=== PATIENT | female | born 1970 | race Caucasian/White ===

== ENCOUNTER 2017-07-18 19:07 | Emergency (ER) | payer BC ==
[~2017-07-18] VITALS: Ht 167.6 cm; Wt 104.3 kg
[~2017-07-18 19:07] MED LIST: INVOKANA PO; LEVEMIR100 UNIT/1 INJ; LISINOPRIL-HCT1 EACH PO; LISINOPRIL10 MG PO; METFORMIN HCL500 M2 PO; METFORMIN HCL500 MG PO; TYLENOL WITH C1 EACH PO; levimer
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
[2017-07-18 23:08] VITALS: BP 109/55
== END 2017-07-18 23:12 | disposition home or self-care (01) ==
LOC: ER 19:07
DX: M54.2 Cervicalgia (principal); S16.1XXA Strain of muscle, fascia and tendon at neck level, initial encounter; S39.012A Strain of muscle, fascia and tendon of lower back, initial encounter; V43.52XA Car driver injured in collision with other type car in traffic accident, initial encounter; Y92.488 Other paved roadways as the place of occurrence of the external cause; E11.9 Type 2 diabetes mellitus without complications; I10 Essential (primary) hypertension; M32.9 Systemic lupus erythematosus, unspecified; M79.7 Fibromyalgia; Z86.718 Personal history of other venous thrombosis and embolism
CPT/HCPCS: 72050; 72110; 99283

== ENCOUNTER → 2017-10-03 | Outpatient (CLI) | payer BC | LOC: RESP 06:41 | PROVIDERS: ATTEND Internal Medicine | DX: J45.40 Moderate persistent asthma, uncomplicated (principal) ==

== ENCOUNTER 2018-01-04 06:48 | Emergency (ER) | payer BC ==
[~2018-01-04] VITALS: Ht 167.6 cm; Wt 104.3 kg
[2018-01-04] MEDS ORDERED: FAMOTIDINE 20 MG/2 ML VIAL IV STA (07:13)
[2018-01-04] MEDS ORDERED: ONDANSETRON HCL INJ 2 MG/ML VIAL IV STA (07:13)
[2018-01-04] MEDS ORDERED: LOPERAMIDE HCL 2 MG CAP PO ONE (07:15)
[2018-01-04] MEDS ORDERED: SODIUM CHLORIDE 0.9% 1000ML 1,000 ML IV ONE ×2 (07:15→08:45)
[2018-01-04] MEDS ORDERED: DICYCLOMINE HCL 20 MG/2 ML VIAL IM ONE (07:15)
[2018-01-04 07:24] LABS: BASOPHILS # (AUTO) 0.1 (0.0-0.1); BASOPHILS % 0.5 % (0.0-1.0); EOSINOPHILS # (AUTO) 0.1 (0.0-0.4); EOSINOPHILS % 1.1 % (0.0-6.0); HEMATOCRIT 40.1 % (34.2-44.1); HEMOGLOBIN 13.4 g/dL (12.0-16.0); LYMPHOCYTES # (AUTO) 2.2 (1.0-3.2); LYMPHOCYTES % 21.4 % (18.0-39.1); MEAN CORPUSCULAR HEMOGLOBIN 29.5 pg (28-32); MEAN CORPUSCULAR HGB CONC 33.4 g/dL (31-35); MEAN CORPUSCULAR VOLUME 88.3 fL (81-99); MONOCYTES # (AUTO) 0.7 (0.2-0.8); MONOCYTES % 7.1 % (4.4-11.3); NEUTROPHILS % 69.6 % (38.7-80.0); PLATELET COUNT 210 x10e3/uL (140-360); RED BLOOD COUNT 4.54 x10e6/uL (3.6-5.1); RED CELL DISTRIBUTION WIDTH 13.5 % (11.7-14.4)
[2018-01-04 07:44] LABS: ALANINE AMINOTRANSFERASE 25 IU/L (0-55); ALBUMIN 3.3 g/dL (3.5-5.0); ALBUMIN/GLOBULIN RATIO 0.8 (0.8-2.0); ALKALINE PHOSPHATASE 72 IU/L (40-150); ANION GAP 17.1 mmol/L (8-16); BLOOD UREA NITROGEN 16 mg/dL (7-26); BUN/CREATININE RATIO 19 (6-25); CALCIUM 9.4 mg/dL (8.4-10.2); CARBON DIOXIDE 24 mmol/L (22-29); CHLORIDE 99 mmol/L (98-107); CREATININE, SERUM 0.84 mg/dL (0.57-1.11); EST GLOMERULAR FILTRATION RATE > 60 ML/MIN (60-); GLUCOSE 231 mg/dL (74-118); LIPASE 34 U/L (8-78); POTASSIUM 4.1 mmol/L (3.5-5.1); SODIUM 136 mmol/L (136-145)
--- NOTE | 2018-01-04 09:32 | Diagnostic Imaging Report ---
PROCEDURE:ABDOMEN ACUTE SERIES W/PA CXR COMPARISON:Lumbar spine radiographs 07/18/2017, abdominal radiograph 12/31/2015. INDICATIONS:EPIGASTRIC PAIN, EGG LIKE SMELL FROM BURPS, VOMITTING FINDINGS: CHEST: The lungs are hypoinflated. No focal airspace consolidation, pleural effusion, or pneumothorax. Cardiomediastinal contour and pulmonary vasculature are within normal limits when accounting for degree of lung inflation. Right lower cervical surgical clips. No pneumoperitoneum. No acute osseous abnormality. BOWEL PATTERN: No dilated, air-filled loops of bowel. SOFT TISSUES: Unremarkable. No mass effect or organomegaly. Byers IVC filter lies at the level of L1-L2, unchanged. Right upper quadrant surgical clips likely related to cholecystectomy. Dropped surgical clip in the right hemipelvis. BONES: Intact. CONCLUSION: 1. low lung volumes without acute cardiopulmonary abnormality. 2. nonobstructive bowel gas pattern. Dictated by: Venkat Huffman M.D. on 01/04/2018 at 8:14 Electronically approved by: Venkat Huffman M.D. on 01/04/2018 at 8:14
[2018-01-04 11:16] VITALS: BP 105/71
== END 2018-01-04 11:41 | disposition home or self-care (01) ==
LOC: ER 06:48
DX: R11.2 Nausea with vomiting, unspecified (principal); R19.7 Diarrhea, unspecified; K52.9 Noninfective gastroenteritis and colitis, unspecified; B34.9 Viral infection, unspecified
CPT/HCPCS: 36415; 74022; 80053; 82948; 83690; 84484; 85025; 93005; 99284; J0500; J2405; J7030

== ENCOUNTER 2018-04-11 17:06 | Emergency (ER) | payer BC ==
[~2018-04-11] VITALS: Ht 167.6 cm; Wt 104.3 kg
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
[2018-04-11 18:43] VITALS: BP 120/66
== END 2018-04-11 18:48 | disposition home or self-care (01) ==
LOC: FSED 17:06
DX: S93.611A Sprain of tarsal ligament of right foot, initial encounter (principal); X50.1XXA Overexertion from prolonged static or awkward postures, initial encounter; Y93.01 Activity, walking, marching and hiking; E11.9 Type 2 diabetes mellitus without complications; M32.9 Systemic lupus erythematosus, unspecified; M79.7 Fibromyalgia
CPT/HCPCS: 99283

== ENCOUNTER 2019-09-20 09:59 | Observation (INO) | payer BC ==
[~2019-09-20] VITALS: Ht 170.2 cm; Wt 106.1 kg
[~2019-09-20 09:59] MED LIST changes: +ALLOPURINOL300 MG PO; +DOXYCYCLINE HY100 MG PO; +GLIPIZIDE-METF1 EAC2; +PLAQUENIL200 MG PO; +TESSALON PERLE100 MG PO; +VENTOLIN HFA18 GM PO
[2019-09-20] MEDS ORDERED: ASPIRIN 81 MG CHEW TAB PO ONE ×2 (10:15→12:15)
--- NOTE | 2019-09-20 11:10 | Diagnostic Imaging Report ---
EXAM: CXR 2 VIEW - [facility] DATE: 09/20/2019 12:00 AM INDICATION: Chest pain COMPARISON: 06/10/2019 FINDINGS: The trachea is midline. The lungs are symmetrically expanded without evidence for large focal consolidation, pneumothorax, or significant pleural effusion. The cardiomediastinal silhouette is stable in appearance. The pulmonary vasculature is not engorged. No acute osseous abnormality is identified. The surrounding soft tissues are unremarkable. IMPRESSION: No acute cardiopulmonary process identified. Signed by: Dr. Davon Crain MD on 09/20/2019 11:07 AM
[2019-09-20] MEDS ORDERED: ASPIRIN 81 MG CHEW TAB ONE (11:34)
[2019-09-20] MEDS ORDERED: DEXTROSE 50% SYRINGE 50 ML IV PRN (12:15)
[2019-09-20] MEDS ORDERED: ONDANSETRON HCL INJ 2MG/ML 2ML 2 MG/ML VIAL IV PRN (12:15)
[2019-09-20] MEDS ORDERED: NITROGLYCERIN 0.4 MG SUBL SL PRN (12:15)
[2019-09-20] MEDS ORDERED: MORPHINE SULFATE 2 MG/ML SYR 1ML IV PRN (12:15)
[2019-09-20] MEDS ORDERED: SODIUM CHLORIDE FLUSH 10 ML SYR INJ PRN (12:15)
[2019-09-20 13:02] LABS: CREATINE KINASE 37 IU/L (29-168)
--- NOTE | 2019-09-20 13:18 | NUR ---
[facility] called to transport pt to Room 111.
[2019-09-20] MEDS ORDERED: FAMOTIDINE 20 MG TAB PO SCH (13:30)
--- NOTE | 2019-09-20 14:01 | NUR ---
Report to EVAN Sheets
[2019-09-20 14:27] VITALS: BP 132/81
[2019-09-20 14:28] VITALS: BP 132/81
--- NOTE | 2019-09-20 14:30 | NUR ---
RECEIVED PATIENT FROM ED VIA STRETCHER FROM AMBULANCE, PT GOT OFF OF STRETCHER AND WALKED TO BED, PT CHANGED INTO YELLOW NON SLIP SOCKS, ADMISSION ASSESSMENT PERFORMED, CALL LIGHT WITHIN REACH, INSTRUCTIONS GIVEN
[2019-09-20] MEDS ORDERED: TRESIBA100 UNIT/1 SQ (14:47)
[2019-09-20] MEDS ORDERED: ZETIA10 MG PO (14:49)
[2019-09-20 16:00] VITALS: BP 120/74
[2019-09-20] MEDS ORDERED: INSULIN REGULAR, HUMAN 100 UNIT/1 ML 3ML VIAL SQ SCH (16:30)
[2019-09-20] MEDS: INSULIN LISPRO 100 UNIT/1 ML 3ML VIAL SQ SCH ×2 (16:46→20:41)
--- NOTE | 2019-09-20 17:18 | History and Physical ---
HISTORY OF PRESENT ILLNESS: This is a 49-year-old female with a history of uncontrolled diabetes mellitus and history of hyperlipidemia, presented to ED with chest pain which is pressure-like chest pain, woke her up and radiation to the left arm. The patient's severity is described as about 4 to 5/10 and no other associated factors. The patient has no shortness of breath. No diaphoresis. No nausea. No vomiting. Positive for some abdominal pain in the epigastric area. PAST MEDICAL HISTORY: History of hypertension, history of uncontrolled diabetes mellitus, history of lupus erythematosus, history of hypertension, history of hyperlipidemia and also history of gout. MEDICATIONS: She takes at home albuterol q.6 hours as needed, allopurinol 300 mg daily, benzonatate 100 mg daily, Zetia 10 mg daily, glipizide/metformin 5/500 twice a day, hydroxychloroquine 200 mg daily, insulin 20 units subcu daily, lisinopril/hydrochlorothiazide 20/12.5 mg daily. PAST SURGICAL HISTORY: History of cholecystectomy, history of hysterectomy, history of tubal ligation in the past. SOCIAL HISTORY: No EtOH, no IV drug abuse, no history of smoking either. REVIEW OF SYSTEMS: Positive for chest pain. No shortness of breath, shortness of breath. No nausea, no vomiting. No diarrhea. No constipation. No rectal bleeding. No hematochezia. No hematemesis. The patient also has a history of DVT with an IVC filter placement for DVT. PHYSICAL EXAMINATION: VITAL SIGNS: Temperature is 97.1, T-max 99.4, pulse 102, blood pressure is 132/81, pulse oximeter of 97%. HEENT: Normocephalic, atraumatic. Pupils are reactive. CVS: S1 and S2 normal. Tachycardic. ABDOMEN: Tender in the epigastrium. EXTREMITIES: No clubbing, no cyanosis, no edema. BACK: With tenderness. SKIN: Normal. LABORATORY VALUES: Initial CK was 37, troponin less than 0.01. Lipase is 34. Rest of the labs were done and UA not done. CBC and CMP are missing in the chart. IMAGING STUDIES: Chest x-ray shows no acute cardiopulmonary process identified. ASSESSMENT: 1. Chest pain. 2. Uncontrolled diabetes. 3. Hyperlipidemia. 4. Obesity. 5. Lupus. 6. Reflux esophagitis. PLAN: To continue trending the troponin. Echocardiogram will be ordered. Stress test will be ordered secondary to the patient's multiple risk factors. The patient had a cardiac cath in 2016 and it was normal. We will plan continue monitoring the patient's CBC, CMP and kidney function will be ordered, further recommendation and clinical course. We will continue to monitor the patient. A consult with Dr. Gallegos, Cardiology has also been done. MD DAYNE Robbins/MIKEYL /[id number]
[2019-09-20] MEDS ORDERED: PNEUMOCOCCAL VACCINE POLYVALENT 23 MCG/0.5 ML VIAL IM NR (17:30)
--- NOTE | 2019-09-20 18:14 | Consultation ---
DATE OF CONSULTATION: 09/20/2019 Cardiology Consultation REQUESTING PHYSICIAN: Dr. Chun. REASON FOR CONSULTATION: Chest pain. HISTORY OF PRESENT ILLNESS: This is a 49-year-old woman with history of hypertension, hyperlipidemia, diabetes mellitus, lupus, and history of right lower extremity DVT, status post IVC filter in 1998, who presents with complaints of chest pain. The patient reports she woke up this morning around 5 a.m. with chest pain, which she described as something sitting on her chest. The pain was 7/10 in severity and was associated with nausea as well as left arm discomfort. She denies any shortness of breath or diaphoresis. She did not notice any aggravation with ambulation to the bathroom. Due to her symptoms, she presented to the ER for further evaluation. Of note, she indicates she has had lower extremity edema since March as well as 2-3 pillow orthopnea since May. Her chest pain has been constant and onset. Cardiology is consulted for further evaluation. REVIEW OF SYSTEMS: Negative except as per HPI. PAST MEDICAL HISTORY: 1. Hypertension. 2. Hyperlipidemia. 3. Diabetes mellitus. 4. Lupus. 5. History of right lower extremity DVT, status post IVC filter in 1998. PAST SURGICAL HISTORY: 1. Tubal ligation. 2. . 3. Tonsillectomy. ALLERGIES: PLEASE SEE EMR. MEDICATIONS: Please see medication list. SOCIAL HISTORY: Denies tobacco or illicit drugs. She does drink alcohol on occasion. FAMILY HISTORY: Pertinent for parents and brother with heart disease, especially brother and mother with heart disease beginning in their 40s. PHYSICAL EXAMINATION: VITAL SIGNS: Temperature 97.6 degrees, pulse 94, respiratory rate 18, blood pressure 120/74, and oxygen saturation 94% on room air. GENERAL: Obese woman, well developed, well nourished, in no acute distress. HEENT: Normocephalic and atraumatic. Pupils equal. No scleral icterus. NECK: Supple. No thyromegaly or cervical lymphadenopathy. No carotid bruits. LUNGS: Clear to auscultation bilaterally. No wheezes or crackles. CARDIOVASCULAR: Normal rate. Regular rhythm. No murmur. Normal S1 and S2. ABDOMEN: Soft and nontender. EXTREMITIES: No edema. NEUROLOGIC: Nonfocal exam. DIAGNOSTIC DATA: EKG, normal sinus rhythm, possible left atrial enlargement, anterior infarct, age undetermined. IMPRESSION: 1. Chest pain. 2. Hypertension. 3. Hyperlipidemia. 4. Diabetes mellitus type 2. 5. History of right lower extremity deep vein thrombosis, status post inferior vena cava filter in 1998. 6. History of lupus. RECOMMENDATIONS: Trend cardiac markers to rule out myocardial infarction. Obtain echocardiogram. If she ruled out, plan for nuclear stress test in the morning. Check fasting lipid panel. Continue home cardiac medications. Monitor on telemetry while admitted. Thank you for this consult. We will continue to follow. Hannah Mclain MD ABS/MODL /[id number]
--- NOTE | 2019-09-20 19:07 | NUR ---
WALKING ROUNDS PERFORMED, RECEIVED PT LAYING SEMI FOWLERS IN BED, AAOX3, RR EVEN AND NON-LABORED, ON ROOM AIR. NO S/SX OF DISTRESS NOTED. LEFT PT LAYING SEMI FOWLERS IN BED, BED IN LOW LOCKED POSITION, SIDE RAILS UPX2, CALL LIGHT AND PHONE WITHIN REACH.
[2019-09-20 19:43] LABS: CREATINE KINASE MB 0.6 ng/mL (0-5.0)
[2019-09-20 20:12] VITALS: BP 124/78
[2019-09-20] MEDS: FAMOTIDINE 20 MG TAB PO SCH (20:41)
[2019-09-21 05:37] LABS: BASOPHILS # (AUTO) 0.1 (0.0-0.1); BASOPHILS % 0.9 % (0.0-1.0); EOSINOPHILS # (AUTO) 0.2 (0.0-0.4); EOSINOPHILS % 2.1 % (0.0-6.0); HEMATOCRIT 38.3 % (34.2-44.1); HEMOGLOBIN 11.7 g/dL (12.0-16.0); LYMPHOCYTES # (AUTO) 3.2 (1.0-3.2); LYMPHOCYTES % 33.8 % (18.0-39.1); MEAN CORPUSCULAR HEMOGLOBIN 27.3 pg (28-32); MEAN CORPUSCULAR HGB CONC 30.5 g/dL (31-35); MEAN CORPUSCULAR VOLUME 89.3 fL (81-99); MONOCYTES # (AUTO) 0.6 (0.2-0.8); MONOCYTES % 6.2 % (4.4-11.3); NEUTROPHILS # (AUTO) 5.3 (2.1-6.9); NEUTROPHILS % 56.6 % (38.7-80.0); PLATELET COUNT 196 x10e3/uL (140-360); RED BLOOD COUNT 4.29 x10e6/uL (3.6-5.1); RED CELL DISTRIBUTION WIDTH 14.6 % (11.7-14.4)
[2019-09-21 05:48] LABS: ALANINE AMINOTRANSFERASE 20 IU/L (0-55); ALBUMIN 3.2 g/dL (3.5-5.0); ALBUMIN/GLOBULIN RATIO 0.9 (0.8-2.0); ALKALINE PHOSPHATASE 64 IU/L (40-150); ANION GAP 13.5 mmol/L (8-16); BLOOD UREA NITROGEN 26 mg/dL (7-26); BUN/CREATININE RATIO 33 (6-25); CALCIUM 9.2 mg/dL (8.4-10.2); CARBON DIOXIDE 26 mmol/L (22-29); CHLORIDE 102 mmol/L (98-107); CHOL/HDL RATIO 4.7 (3.0-3.6); CHOLESTEROL 201 MD/DL (0-199); CREATININE, SERUM 0.79 mg/dL (0.57-1.11); EST GLOMERULAR FILTRATION RATE > 60 ML/MIN (60-); GLUCOSE 169 mg/dL (74-118); HDL CHOLESTEROL 43 MG/DL (40-60); LDL CHOLESTEROL 117 MG/DL (60-130); POTASSIUM 4.5 mmol/L (3.5-5.1); SODIUM 137 mmol/L (136-145); TRIGLYCERIDES 205 MG/DL (0-149)
[2019-09-21 06:07] LABS: CREATINE KINASE 25 IU/L (29-168)
--- NOTE | 2019-09-21 07:05 | NUR ---
RCD PT AT BED PT IS ALERT AND ORIENTED RESTING ON BED NO SIGNS OF ANY DISTRESS NOTED IV PATENT BY SALINE FLUSH BED PT NPO FOR PROCEDURE LOW AND LOCKED CALL LIGHT IN REACH
[2019-09-21] MEDS: INSULIN LISPRO 100 UNIT/1 ML 3ML VIAL SQ SCH ×3 (07:30→16:30)
[2019-09-21 08:00] VITALS: BP 128/81
--- NOTE | 2019-09-21 08:01 | Progress Note ---
DATE: SUBJECTIVE: The patient is a 49-year-old female with a history of uncontrolled diabetes mellitus, hypertension, hyperlipidemia, and systemic lupus erythematosus. The patient still complains some chest pain, but is much better. Has dissipated. No pressure-like pain. No radiation to the left arm. Currently, no shortness of breath. No nausea, no vomiting, no diarrhea. OBJECTIVE: VITAL SIGNS: Temperature is 98.1, pulse of 95, respirations of 19, pulse oximetry of 95%. HEENT: Normocephalic and atraumatic. Pupils are reactive to light and accommodation. CVS: S1 and S2 normal. Regular rate and rhythm. ABDOMEN: Nontender and nondistended. EXTREMITIES: No clubbing, no cyanosis, no edema. LABORATORY VALUES: From today, white count is 9.41, hemoglobin of 11.7, hematocrit 38.3. Chemistries; sodium of 137, , BUN of 26, creatinine 0.79. Glucoses are running better. Troponins less than 0.01. LDL was 117. ASSESSMENT: Ms. Taylor Hartley with, 1. Chest pain. The cardiac markers have so far been negative. 2. Hypertension. 3. Hyperlipidemia. 4. Diabetes mellitus. 5. History of deep vein thrombosis in the past with an IVC filter. 6. History of lupus. 7. Morbid obesity. PLAN: Stress test is to be done today. The patient will be started back on statin. The patient will be on atorvastatin 20 mg. Further recommendation per clinical course. We will continue to monitor the patient. MD DAYNE Robbins/MODL /[id number]
[2019-09-21 08:47] VITALS: BP 128/81
[2019-09-21] MEDS ORDERED: EZETIMIBE 10 MG TAB PO SCH (09:00)
[2019-09-21] MEDS ORDERED: ALLOPURINOL 300 MG TAB PO SCH (09:00)
[2019-09-21] MEDS ORDERED: HYDROXYCHLOROQUINE SULFATE 200 MG TAB PO SCH (09:00)
[2019-09-21] MEDS ORDERED: LISINOPRIL 20 MG TAB PO SCH (09:00)
[2019-09-21] MEDS ORDERED: ASPIRIN 81 MG ENTERIC COATED PO SCH (09:00)
[2019-09-21] MEDS ORDERED: REGADENOSON 0.4 MG/5 ML SYR IV ONE (10:43)
--- NOTE | 2019-09-21 11:28 | NUR ---
PT WENT FOR PROCEDURE IN SAFE CONDITION
--- NOTE | 2019-09-21 14:05 | NUR ---
PT BACK AFTER PROCEDURE PT IS ALERT AND ORIENTED VITALS CHECKED PT RESTING ON BED BED LOW AND LOCKED CALL LIGHT IN REACH
[2019-09-21] MEDS: FAMOTIDINE 20 MG TAB PO SCH (14:15)
[2019-09-21 14:25] VITALS: BP 132/78
--- NOTE | 2019-09-21 15:33 | NUR ---
AC TO [facility] [employer] MANAGER PAGED DR ROBERTS TO GET THE DISCHARGE ORDER
--- NOTE | 2019-09-21 15:45 | NUR ---
DR HASTINGS RETURNED THE CALL SHE SAID SHE WILL CALL BACK WHEN THE TEST REPORT IS BACK
[2019-09-21 16:00] VITALS: BP 132/78
--- NOTE | 2019-09-21 18:20 | NUR ---
AC TO CARDIOLOGY PT CAN GO HOME PAGED AND NOTIFIED DR ALONZO GOT THE DISCHARGE ORDER
--- NOTE | 2019-09-21 18:28 | Progress Note ---
DATE: 09/21/2019 Cardiology Progress Note SUBJECTIVE: The patient continues to have chest pain. She denies shortness of breath. She was seen for nuclear stress test. OBJECTIVE: VITAL SIGNS: Temperature 97 degrees, pulse 93, respiratory rate 16, blood pressure 132/78, and oxygen saturation 95% on room air. GENERAL: Awake, alert, in no acute distress. LUNGS: Clear to auscultation bilaterally. No wheezes or crackles. CARDIOVASCULAR: Normal rate. Regular rhythm. No murmur. Normal S1 and S2. ABDOMEN: Soft and nontender. EXTREMITIES: No edema. CARDIAC MEDICATIONS: Lisinopril 20 mg p.o. daily, Zetia 10 mg p.o. daily, aspirin 81 mg p.o. daily, and atorvastatin 10 mg p.o. at bedtime. LABORATORY DATA: WBC 9.4, hemoglobin 11.7, hematocrit 38.3, and platelets 196. Sodium 137, potassium 4.5, chloride 102, CO2 26, BUN 26, and creatinine 0.79. Troponin less than 0.001. Telemetry personally reviewed and interpreted, revealing normal sinus rhythm. IMPRESSION: 1. Pain. 2. Hypertension. 3. Hyperlipidemia. 4. Diabetes mellitus type 2. 5. History of right lower extremity deep venous thrombosis, status post IVC filter in 1998. 6. History of lupus. RECOMMENDATIONS: The patient ruled out for myocardial infarction with serial cardiac biomarkers. Echocardiogram reveals normal LV function. Nuclear stress test was done, which suggests a small area of mild ischemia in the anterior wall, unable to rule out attenuation artifact. This finding was discussed with the patient. Given current coronavirus pandemic, recommend discharge on aspirin 81 mg p.o. daily and expedited cardiac catheterization next week. ER warnings were discussed with the patient, who understood and agreed with plan of care. Thank you for this consult. We will continue to follow. Hannah Mclain MD ABS/MODL /[id number]
--- NOTE | 2019-09-21 18:43 | NUR ---
PT GOING HOME WAITING RIDE, BED SIDE REPORT GIVEN TO ONCOMING NURSE
--- NOTE | 2019-09-21 19:00 | NUR ---
PT WENT HOME IN SAFE CONDITION WITH HER SISTER
--- NOTE | 2019-09-21 19:08 | Myoview Stress Test ---
DATE OF STUDY: 09/20/2019 17:41:00 Stress Test - Treadmill ONLY STUDY PERFORMED: Nuclear stress report. PROCEDURE TITLE: Rest/stress single isotope SPECT imaging with pharmacologic stress and gated SPECT imaging. INDICATION: Chest pain. PROCEDURE IN DETAIL: Pharmacologic stress testing was performed with regadenoson per protocol. The heart rate was 91 beats per minute at rest, increased to 100 beats per minute during the regadenoson infusion. The resting blood pressure was 146/71 mmHg and decreased to 117/62 mmHg, which is a normal response. The resting electrocardiogram demonstrated normal sinus rhythm. There were no ST-segment changes suggestive of myocardial ischemia. Myocardial perfusion imaging was performed at rest following the injection of 11 mCi of tetrofosmin. At peak pharmacologic effect, the patient was injected with 30.3 mCi of tetrofosmin. Gated post-stress tomographic imaging was performed. FINDINGS: The overall quality of study is fair. Left ventricular cavity is noted to be normal size on the rest and stress studies. SPECT images demonstrate a small moderate perfusion defect in the anterior wall at rest that is worse with stress. Gated SPECT imaging reveals normal myocardial thickening and wall motion. Left ventricular ejection fraction was calculated to be 57%. IMPRESSION: Myocardial perfusion imaging is abnormal. There is a small moderately severe area of ischemia in the anterior wall. Overall, left ventricular systolic function was normal without regional wall motion abnormalities. Hannah Mclain MD ABS/MODL /[id number]
[2019-09-21] MEDS ORDERED: ATORVASTATIN 10 MG TAB PO SCH (21:00)
[2019-09-22] MEDS ORDERED: PNEUMOCOCCAL VACCINE POLYVALENT 23 MCG/0.5 ML VIAL IM NR (17:00)
== END 2019-09-21 19:00 | disposition home or self-care (01) ==
LOC: FSED 09:59 → ERHOLD 12:10 → MED/SURG 14:18
PROVIDERS: ADMIT Family Medicine; ATTEND Family Medicine
DX: R07.9 Chest pain, unspecified (principal); E10.65 Type 1 diabetes mellitus with hyperglycemia; E78.5 Hyperlipidemia, unspecified; E66.01 Morbid (severe) obesity due to excess calories; Z68.36 Body mass index [BMI] 36.0-36.9, adult; K21.0 Gastro-esophageal reflux disease with esophagitis; M32.9 Systemic lupus erythematosus, unspecified; Z90.49 Acquired absence of other specified parts of digestive tract; Z79.4 Long term (current) use of insulin; Z88.0 Allergy status to penicillin; Z88.2 Allergy status to sulfonamides; Z86.718 Personal history of other venous thrombosis and embolism
CPT/HCPCS: 36415 ×2; 71046; 78452; 80053 ×2; 80061; 82550 ×2; 82553 ×2; 82948 ×2; 83690; 84443; 84484 ×2; 85025 ×2; 85379; 93005; 93017; 93306; 99284; A9502; G0378 ×2; J2270; J2405; J2785

== ENCOUNTER 2022-05-04 08:55 | Emergency (ER) | payer BC ==
[~2022-05-04] VITALS: Ht 167.6 cm; Wt 86.2 kg
[~2022-05-04 08:55] MED LIST changes: +ASPIRIN81 MG PO; +CARVEDILOL3.125 MG PO; +FUROSEMIDE40 MG PO; +ISOSORBIDE MONO10 MG; +METOPROLOL TART50 MG PO; +RYBELSUS14 MG; +SPIRONOLACTONE25 MG PO; +SYMBICORT 16010.2 GM INH; +SYNJARDY 12.5-1 EACH; +TRESIBA FL100 UNIT/1; +TRESIBA100 UNIT/1 SQ; +VASCEPA1 GM; +ZETIA10 MG PO
[2022-05-04] MEDS ORDERED: SODIUM CHLORIDE 0.9% 1000ML 1,000 ML IV STA (09:05)
[2022-05-04 09:34] LABS: BASOPHILS # (AUTO) 0.1 (0.0-0.1); BASOPHILS % 0.6 % (0.0-1.0); EOSINOPHILS % 0.4 % (0.0-6.0); HEMATOCRIT 44.2 % (34.2-44.1); HEMOGLOBIN 13.4 g/dL (12.0-16.0); LYMPHOCYTES # (AUTO) 2.8 (1.0-3.2); LYMPHOCYTES % 27.7 % (18.0-39.1); MEAN CORPUSCULAR HEMOGLOBIN 26.4 pg (28-32); MEAN CORPUSCULAR HGB CONC 30.3 g/dL (31-35); MONOCYTES # (AUTO) 0.4 (0.2-0.8); MONOCYTES % 4.3 % (4.4-11.3); NEUTROPHILS # (AUTO) 6.7 (2.1-6.9); NEUTROPHILS % 66.7 % (38.7-80.0); PLATELET COUNT 184 x10e3/uL (140-360); RED BLOOD COUNT 5.08 x10e6/uL (3.6-5.1); RED CELL DISTRIBUTION WIDTH 14.5 % (11.7-14.4)
[2022-05-04 09:47] LABS: INR 0.82; PARTIAL THROMBOPLASTIN TIME 26.4 seconds (23.8-35.5); PROTHROMBIN TIME 12.1 seconds (11.9-14.5)
[2022-05-04 10:50] LABS: ALANINE AMINOTRANSFERASE 8 IU/L (0-55); ALBUMIN 2.8 g/dL (3.5-5.0); ALBUMIN/GLOBULIN RATIO 0.6 (0.8-2.0); ALKALINE PHOSPHATASE 74 IU/L (40-150); ANION GAP 13.2 mmol/L (8-16); BLOOD UREA NITROGEN 22 mg/dL (7-26); BUN/CREATININE RATIO 25 (6-25); CALCIUM 8.4 mg/dL (8.4-10.2); CARBON DIOXIDE 28 mmol/L (22-29); CHLORIDE 100 mmol/L (98-107); CREATINE KINASE 26 IU/L (29-168); CREATININE, SERUM 0.89 mg/dL (0.57-1.11); GLUCOSE 275 mg/dL (74-118); POTASSIUM 4.2 mmol/L (3.5-5.1); SODIUM 137 mmol/L (136-145)
[2022-05-04 11:35] LABS: COLOR,URINE YELLOW (YELLOW)
[2022-05-04 11:36] LABS: CLARITY,URINE SL CLOUDY (CLEAR); KETONES,URINE NEGATIVE (NEGATIVE); LEUKOCYTE ESTERASE ,URINE TRACE (NEGATIVE); NITRITE,URINE POSITIVE (NEGATIVE); PROTEIN,URINE DIPSTICK >=300 (NEGATIVE); URINE UROBILINOGEN 0.2 mg/dL (0.2 - 1)
[2022-05-04 11:48] LABS: TRICHOMONAS,URINE RARE
[2022-05-04 11:49] LABS: WBC,URINE (MAN) 21-50 /HPF (0-5)
[2022-05-04 11:50] LABS: BACTERIA,URINE MANY /HPF
[2022-05-04 11:51] LABS: EPITHELIAL CELLS,URINE MODERATE /LPF
[2022-05-04] MEDS ORDERED: AZITHROMYCIN 250 MG TAB PO ONE (12:15)
[2022-05-04] MEDS ORDERED: METRONIDAZOLE500 MG PO (12:45)
[2022-05-04] MEDS ORDERED: ONDANSETRON ODT4 MG PO (12:45)
[2022-05-04] MEDS ORDERED: CEFDINIR300 MG PO (12:45)
[2022-05-04] MEDS ORDERED: DOXYCYCLINE HY100 MG PO (12:45)
[2022-05-04 12:59] VITALS: BP 159/87
== END 2022-05-04 13:09 | disposition home or self-care (01) ==
LOC: ER 09:06
DX: E11.65 Type 2 diabetes mellitus with hyperglycemia (principal); A59.09 Other urogenital trichomoniasis; N39.0 Urinary tract infection, site not specified; Z79.4 Long term (current) use of insulin; I10 Essential (primary) hypertension; E66.9 Obesity, unspecified; M32.9 Systemic lupus erythematosus, unspecified; Z86.718 Personal history of other venous thrombosis and embolism; Z95.828 Presence of other vascular implants and grafts; Z88.0 Allergy status to penicillin; Z88.2 Allergy status to sulfonamides; Z68.30 Body mass index [BMI] 30.0-30.9, adult
CPT/HCPCS: 36415; 71045; 80053; 81001; 82550; 82553; 82948; 83735; 84484; 84702; 85025; 85610; 85730; 87086; 87186; 93005; 99284; J0696; J7030